=== PATIENT | female | born 1980 | race Two or more races ===

== ENCOUNTER 2023-04-10 17:22 | Emergency (ER) | payer MEDICAID, OTHER ==
[~2023-04-10] VITALS: Ht 165.1 cm; Wt 82.0 kg
[2023-04-11] MEDS ORDERED: IBUP-1456 PO (00:04)
[2023-04-11] MEDS ORDERED: CYCL-837 PO (00:04)
[2023-04-11] MEDS ORDERED: KETOROLAC TROMETH 60MG/2ML VIAL IM ONE (00:15)
[2023-04-11 00:53] VITALS: BP 111/66; PULSE 94; RESP 18; TEMP 98; O2SAT 98
== END 2023-04-11 00:53 | disposition home or self-care (01) ==
LOC: ER 17:22
DX: S39.012A Strain of muscle, fascia and tendon of lower back, initial encounter (principal); F17.210 Nicotine dependence, cigarettes, uncomplicated; Z98.51 Tubal ligation status; Z79.1 Long term (current) use of non-steroidal anti-inflammatories (NSAID); Z79.899 Other long term (current) drug therapy; Y04.8XXA Assault by other bodily force, initial encounter; Y93.89 Activity, other specified; Y92.89 Other specified places as the place of occurrence of the external cause; Y99.8 Other external cause status
CPT/HCPCS: 72100; 96372; 99283; J1885